=== PATIENT | female | born 1980 | race Caucasian/White ===

== ENCOUNTER → 2017-08-13 | Outpatient (CLI) | payer BC, OTHER ==
[~2017-08-13] MED LIST: (NONE)10 MG; AMBIEN10 M1 PO; AMOXICILLIN500 MG PO; ATENOLOL50 MG; ATIVAN0.5 MG PO; BACTRIM DS 8001 TA1 PO; BIAXIN500 MG PO; CATAFLAM50 MG PO; CLARITIN-D 12 H1 TAB PO; CLARITIN10 MG PO; CLEOCIN150 MG PO; CYMBALTA20 MG PO; CYMBALTA30 MG PO; CYMBALTA60 MG; FLEXERIL10 MG PO; LEVAQUIN750 MG PO; LEXAPRO20 MG; LISINOPRIL HCTZ1 TA1; LISINOPRIL HCTZ1 TA1 PO; LISINOPRIL-HYDR1 TA1 PO; LISINOPRIL20 MG; MEDROL DOSEPAK4 MG PO; MOTRIN800 MG PO; OMEPRAZOLE D/R20 MG PO; OMEPRAZOLE20 M1; PEN-VK500 MG PO; PRAVASTATIN SOD40 MG; PROVENTIL0.09 MG/AC IH; PYRIDIUM200 MG PO; TENORMIN50 MG PO; TOPIRAMATE25 M3 PO; VENTOLIN H0.09 MG/AC INH; VIBRAMYCIN100 MG PO; VICODIN 5/500 505 MG PO; VICODIN ES 7501 TAB PO; VITAMIN D2000 IU; ZANTAC 150150 MG PO; ZITHROMAX Z PA250 MG PO; ZOFRAN ODT4 MG SL; ZYRTEC10 MG PO
[2017-08-13 09:08] LABS: BASO # 0.1 10*3/uL (0.0-0.1); BASO % 0.7 % (0.0-1.0); EOS # 0.3 10*3/uL (0.0-0.4); EOS % 3.9 % (1.0-4.0); HEMATOCRIT 43.5 % (37.0-47.0); HEMOGLOBIN 14.8 g/dl (12.0-16.0); LYMPH % 24.6 % (27.0-41.0); MEAN CELL VOLUME 89.5 fl (81.0-99.0); MEAN CORPUSCULAR HGB 30.5 pg (27.0-31.0); MEAN PLATELET VOLUME 9.3 fl (9.6-12.3); MONO # 0.4 10*3/uL (0.1-1.0); NEUT # 5.2 10*3/uL (2.3-7.9); NEUT % 65.4 % (47.0-73.0); PLATELET COUNT AUTOMATED 374 10*3/uL (130-400); RED BLOOD COUNT 4.86 10*6/uL (4.10-5.10); RED CELL DISTRI WIDTH 12.9 % (0-14.5)
[2017-08-13 09:35] LABS: ALBUMIN 3.7 gm/dl (3.1-4.5); ALKALINE PHOSPHATASE 87 U/L (45-117); BILIRUBIN, DIRECT < 0.1 mg/dL (0.0-0.2); BUN 11 mg/dl (7-24); CHLORIDE 103 mmol/L (98-107); CREATININE 0.82 mg/dL (0.55-1.02); POTASSIUM 4.3 mmol/L (3.5-5.1); SGOT/AST 10 IU/L (3-35); SGPT/ALT 21 U/L (12-78); SODIUM 138 mmol/L (136-145); TOTAL PROTEIN 7.7 gm/dL (6.4-8.2)
== END | disposition home or self-care (01) ==
LOC: LAB 08:30
PROVIDERS: Podiatrist Foot & Ankle Surgery
DX: B35.1 Tinea unguium (principal)

== ENCOUNTER 2017-09-18 16:52 | Emergency (ER) | payer BC, OTHER ==
[~2017-09-18] VITALS: Wt 135.2 kg
[2017-09-18 18:41] VITALS: BP 130/89
[2017-09-18] MEDS ORDERED: ANAPROX DS550 MG PO (19:21)
== END 2017-09-18 19:29 | disposition home or self-care (01) ==
LOC: ED 16:52
DX: M25.562 Pain in left knee (principal); Z79.899 Other long term (current) drug therapy

== ENCOUNTER 2018-06-09 16:46 | Inpatient (IN) | payer BC ==
[~2018-06-09] VITALS: Ht 170.2 cm; Wt 135.0 kg
--- NOTE | ~2018-06-09 | EKG ---
[place], [place] ELECTROCARDIOGRAM REPORT NAME: FLOYD MENDOZA UNIT #: [id number] ROOM: 525 DOCTOR: DAMIAN BLACKBURN MD BIRTHDATE: [birth year] DOS: 06/09/2018 TIME: 1737 hours. FINDINGS: 1. Normal sinus rhythm at 69 beats per minute. 2. The tracing is normal. 3. No previous tracing is available for comparison. DAMIAN BLACKBURN MD CM:EKGRPT:ELECTROCARDIOGRAM REPORT [id number] DAMIAN BLACKBURN MD
--- NOTE | ~2018-06-09 | EKG ---
[place], [place] ELECTROCARDIOGRAM REPORT NAME: FLOYD MENDOZA UNIT #: [id number] ROOM: 525 DOCTOR: DAMIAN BLACKBURN MD BIRTHDATE: [birth year] DOS: 06/09/2018 TIME: 1737 hours Normal sinus rhythm at 69 beats per minute. The tracing is normal. No previous tracing is available for comparison. DAMIAN BLACKBURN MD CM:EKGRPT:ELECTROCARDIOGRAM REPORT 1707 181 DAMIAN BLACKBURN MD
[~2018-06-09 16:46] MED LIST changes: +ANAPROX DS550 MG PO
[2018-06-09 17:00] VITALS: BP 161/108; BP 162/100
[2018-06-09 17:59] LABS: BASO # 0.1 10*3/uL (0.0-0.1); BASO % 0.7 % (0.0-1.0); EOS # 0.2 10*3/uL (0.0-0.4); EOS % 1.8 % (1.0-4.0); HEMOGLOBIN 13.8 g/dl (12.0-16.0); LYMPH # 2.1 10*3/uL (1.3-4.4); LYMPH % 20.8 % (27.0-41.0); MEAN CELL VOLUME 86.9 fl (81.0-99.0); MEAN CORPUSCULAR HGB 29.2 pg (27.0-31.0); MEAN CORPUSCULAR HGB CONC 33.7 g/dl (33.0-37.0); MEAN PLATELET VOLUME 9.9 fl (9.6-12.3); MONO # 0.7 10*3/uL (0.1-1.0); MONO % 7.2 % (3.0-9.0); PLATELET COUNT AUTOMATED 313 10*3/uL (130-400); RED BLOOD COUNT 4.72 10*6/uL (4.10-5.10); RED CELL DISTRI WIDTH 12.7 % (0-14.5); WHITE BLOOD COUNT 10.1 10*3/uL (4.8-10.8)
[2018-06-09 18:07] LABS: ACT PARTIAL THROMBO TIME 23.9 SECONDS (20.8-31.5)
[2018-06-09] MEDS ORDERED: LEXAPRO10 MG PO (18:10)
[2018-06-09] MEDS ORDERED: ATARAX,VISTARIL50 MG PO (18:10)
[2018-06-09] MEDS ORDERED: TRAZODONE50 MG PO (18:11)
[2018-06-09 18:14] LABS: ALBUMIN 3.5 gm/dl (3.1-4.5); ALKALINE PHOSPHATASE 67 U/L (45-117); BUN 7 mg/dl (7-24); CHLORIDE 104 mmol/L (98-107); CHOLESTEROL 210 mg/dL (<200); CREATININE 0.83 mg/dL (0.55-1.02); HDL CHOLESTEROL 67 mg/dl (40-60); LDL CHOLESTEROL 112 mg/dL (9-159); PHOSPHOROUS 3.1 mg/dL (2.5-4.9); POTASSIUM 3.5 mmol/L (3.5-5.1); SGOT/AST 12 IU/L (3-35); SGPT/ALT 23 U/L (12-78); SODIUM 139 mmol/L (136-145); TOTAL PROTEIN 7.1 gm/dL (6.4-8.2); TRIGLYCERIDES 153 mg/dl (<150); VLDL CHOLESTEROL 31 mg/dL (6-40)
[2018-06-09 18:16] LABS: FREE T4 0.91 ng/dl (0.76-1.46)
[2018-06-09 18:44] LABS: VITAMIN D, 25-HYDROXY 28.9 ng/mL (30-100)
[2018-06-09 20:00] VITALS: BP 163/118
[2018-06-10] VITALS (10 sets, daily range): BP systolic 116–148; BP diastolic 66–98
[2018-06-10 06:09] LABS: BASO # 0.1 10*3/uL (0.0-0.1); BASO % 0.6 % (0.0-1.0); EOS # 0.2 10*3/uL (0.0-0.4); EOS % 2.6 % (1.0-4.0); HEMATOCRIT 39.6 % (37.0-47.0); HEMOGLOBIN 13.2 g/dl (12.0-16.0); LYMPH # 2.1 10*3/uL (1.3-4.4); LYMPH % 22.7 % (27.0-41.0); MEAN CELL VOLUME 87.6 fl (81.0-99.0); MEAN CORPUSCULAR HGB 29.2 pg (27.0-31.0); MEAN CORPUSCULAR HGB CONC 33.3 g/dl (33.0-37.0); MEAN PLATELET VOLUME 9.8 fl (9.6-12.3); MONO # 0.7 10*3/uL (0.1-1.0); MONO % 7.5 % (3.0-9.0); NEUT # 6.2 10*3/uL (2.3-7.9); NEUT % 66.1 % (47.0-73.0); PLATELET COUNT AUTOMATED 293 10*3/uL (130-400); RED BLOOD COUNT 4.52 10*6/uL (4.10-5.10); RED CELL DISTRI WIDTH 13.1 % (0-14.5); WHITE BLOOD COUNT 9.3 10*3/uL (4.8-10.8)
[2018-06-10 06:38] LABS: BUN 8 mg/dl (7-24); CHLORIDE 104 mmol/L (98-107); CREATININE 0.83 mg/dL (0.55-1.02); POTASSIUM 3.6 mmol/L (3.5-5.1); SODIUM 141 mmol/L (136-145)
[2018-06-11] VITALS: BP 128/73
[2018-06-11 07:12] LABS: BASO # 0.1 10*3/uL (0.0-0.1); BASO % 0.7 % (0.0-1.0); EOS # 0.3 10*3/uL (0.0-0.4); EOS % 2.3 % (1.0-4.0); HEMOGLOBIN 12.8 g/dl (12.0-16.0); LYMPH # 1.8 10*3/uL (1.3-4.4); LYMPH % 15.5 % (27.0-41.0); MEAN CELL VOLUME 88.8 fl (81.0-99.0); MEAN CORPUSCULAR HGB 29.2 pg (27.0-31.0); MEAN CORPUSCULAR HGB CONC 32.8 g/dl (33.0-37.0); MEAN PLATELET VOLUME 10.2 fl (9.6-12.3); MONO # 0.9 10*3/uL (0.1-1.0); MONO % 8.2 % (3.0-9.0); NEUT # 8.2 10*3/uL (2.3-7.9); NEUT % 72.9 % (47.0-73.0); PLATELET COUNT AUTOMATED 277 10*3/uL (130-400); RED BLOOD COUNT 4.39 10*6/uL (4.10-5.10); RED CELL DISTRI WIDTH 12.9 % (0-14.5); WHITE BLOOD COUNT 11.3 10*3/uL (4.8-10.8)
[2018-06-11 07:25] LABS: BUN 7 mg/dl (7-24); CHLORIDE 104 mmol/L (98-107); CREATININE 0.81 mg/dL (0.55-1.02); POTASSIUM 3.9 mmol/L (3.5-5.1); SODIUM 139 mmol/L (136-145)
[2018-06-11 08:00] VITALS: BP 143/85
[2018-06-11 12:00] VITALS: BP 144/102
[2018-06-11 16:00] VITALS: BP 145/101
[2018-06-11 17:40] VITALS: BP 156/92
[2018-06-11 20:00] VITALS: BP 155/104
[2018-06-12] VITALS: BP 128/79
[2018-06-12 07:23] LABS: BASO # 0.1 10*3/uL (0.0-0.1); BASO % 0.6 % (0.0-1.0); EOS # 0.2 10*3/uL (0.0-0.4); EOS % 2.4 % (1.0-4.0); HEMATOCRIT 38.7 % (37.0-47.0); HEMOGLOBIN 12.9 g/dl (12.0-16.0); LYMPH # 1.9 10*3/uL (1.3-4.4); LYMPH % 19.2 % (27.0-41.0); MEAN CELL VOLUME 88.6 fl (81.0-99.0); MEAN CORPUSCULAR HGB 29.5 pg (27.0-31.0); MEAN CORPUSCULAR HGB CONC 33.3 g/dl (33.0-37.0); MEAN PLATELET VOLUME 10.4 fl (9.6-12.3); MONO # 0.7 10*3/uL (0.1-1.0); MONO % 6.5 % (3.0-9.0); NEUT # 7.2 10*3/uL (2.3-7.9); NEUT % 70.8 % (47.0-73.0); PLATELET COUNT AUTOMATED 280 10*3/uL (130-400); RED BLOOD COUNT 4.37 10*6/uL (4.10-5.10); WHITE BLOOD COUNT 10.1 10*3/uL (4.8-10.8)
[2018-06-12 07:35] LABS: BUN 8 mg/dl (7-24); CHLORIDE 104 mmol/L (98-107); CREATININE 0.86 mg/dL (0.55-1.02); POTASSIUM 4.1 mmol/L (3.5-5.1); SODIUM 138 mmol/L (136-145)
[2018-06-12 08:00] VITALS: BP 137/83
[2018-06-12] MEDS ORDERED: SIMVASTATIN20 MG PO (11:48)
[2018-06-12] MEDS ORDERED: DOXYCYCLINE100 M3 PO (11:48)
[2018-06-12] MEDS ORDERED: B12,B-12,B 12500 MC1 PO (11:48)
[2018-06-12] MEDS ORDERED: LISINOPRIL10 M1 PO (11:48)
[2018-06-12] MEDS ORDERED: VITAMIN D-32000 UNIT PO (11:48)
[2018-06-12 12:00] VITALS: BP 162/95
[2018-06-12] MEDS ORDERED: AUGMENTIN 875875 MG PO (12:50)
[2018-06-12] MEDS ORDERED: [UNRECOGNIZED DRUG - REMARK] T (12:50)
== END 2018-06-12 13:57 | disposition home or self-care (01) | DRG 580 ==
LOC: 5E 16:46
PROVIDERS: Internal Medicine Nephrology
PROC: 0W9F0ZZ Drainage of Abdominal Wall, Open Approach (ICD-10-PCS; principal; 2018-06-10)
DX: L02.211 Cutaneous abscess of abdominal wall (principal); Z68.42 Body mass index [BMI] 45.0-49.9, adult; E66.01 Morbid (severe) obesity due to excess calories; D72.810 Lymphocytopenia; E78.2 Mixed hyperlipidemia; E53.8 Deficiency of other specified B group vitamins; F41.9 Anxiety disorder, unspecified; L03.311 Cellulitis of abdominal wall; K21.9 Gastro-esophageal reflux disease without esophagitis; I10 Essential (primary) hypertension; G47.00 Insomnia, unspecified; E55.9 Vitamin D deficiency, unspecified; Z72.0 Tobacco use; Z79.899 Other long term (current) drug therapy; Z71.6 Tobacco abuse counseling; Z90.49 Acquired absence of other specified parts of digestive tract; Z82.49 Family history of ischemic heart disease and other diseases of the circulatory system

== ENCOUNTER → 2018-06-13 | Outpatient (CLI) | payer BC ==
[~2018-06-13] MED LIST changes: +ATARAX,VISTARIL50 MG PO; +AUGMENTIN 875875 MG PO; +B12,B-12,B 12500 MC1 PO; +DOXYCYCLINE100 M3 PO; +LEXAPRO10 MG PO; +LISINOPRIL10 M1 PO; +SIMVASTATIN20 MG PO; +TRAZODONE50 MG PO; +VITAMIN D-32000 UNIT PO; +[UNRECOGNIZED DRUG - REMARK] T
== END | disposition home or self-care (01) ==
LOC: WOUNDCARE 04:28
DX: S31.109A Unspecified open wound of abdominal wall, unspecified quadrant without penetration into peritoneal cavity, initial encounter (principal); L02.211 Cutaneous abscess of abdominal wall; F41.9 Anxiety disorder, unspecified; K21.9 Gastro-esophageal reflux disease without esophagitis; E78.5 Hyperlipidemia, unspecified; I10 Essential (primary) hypertension; G47.00 Insomnia, unspecified; F17.210 Nicotine dependence, cigarettes, uncomplicated; X58.XXXA Exposure to other specified factors, initial encounter; Y93.89 Activity, other specified; Y92.89 Other specified places as the place of occurrence of the external cause; Y99.8 Other external cause status

== ENCOUNTER → 2018-06-19 | Outpatient (CLI) | payer BC | END | disposition home or self-care (01) | LOC: WOUNDCARE 08:31 | DX: S31.104D Unspecified open wound of abdominal wall, left lower quadrant without penetration into peritoneal cavity, subsequent encounter (principal); L02.211 Cutaneous abscess of abdominal wall; K21.9 Gastro-esophageal reflux disease without esophagitis; E78.5 Hyperlipidemia, unspecified; I10 Essential (primary) hypertension; G47.00 Insomnia, unspecified; F41.9 Anxiety disorder, unspecified; F17.200 Nicotine dependence, unspecified, uncomplicated; X58.XXXD Exposure to other specified factors, subsequent encounter ==

== ENCOUNTER 2018-12-30 17:28 | Emergency (ER) | payer BC ==
[~2018-12-30] VITALS: Ht 170.1 cm; Wt 134.3 kg
[2018-12-30 17:34] VITALS: BP 164/114
== END 2018-12-30 19:00 | disposition home or self-care (01) ==
LOC: ED 17:28
DX: S51.812A Laceration without foreign body of left forearm, initial encounter (principal); E66.01 Morbid (severe) obesity due to excess calories; K21.9 Gastro-esophageal reflux disease without esophagitis; E78.5 Hyperlipidemia, unspecified; I10 Essential (primary) hypertension; F17.200 Nicotine dependence, unspecified, uncomplicated; Z79.899 Other long term (current) drug therapy; W00.0XXA Fall on same level due to ice and snow, initial encounter; Y93.89 Activity, other specified; Y92.89 Other specified places as the place of occurrence of the external cause; Y99.8 Other external cause status

== ENCOUNTER 2019-06-05 20:16 | Emergency (ER) | payer BC ==
[~2019-06-05] VITALS: Ht 170.1 cm; Wt 134.3 kg
[2019-06-05 20:17] VITALS: BP 164/117
[2019-06-05] MEDS ORDERED: CLOBETASOL EMOL15 GM T (20:38)
== END 2019-06-05 20:43 | disposition home or self-care (01) ==
LOC: ED 20:16
DX: L30.1 Dyshidrosis [pompholyx] (principal); E66.01 Morbid (severe) obesity due to excess calories; K21.9 Gastro-esophageal reflux disease without esophagitis; E78.5 Hyperlipidemia, unspecified; I10 Essential (primary) hypertension; F17.200 Nicotine dependence, unspecified, uncomplicated; Z79.2 Long term (current) use of antibiotics; Z79.899 Other long term (current) drug therapy; Z90.49 Acquired absence of other specified parts of digestive tract

== ENCOUNTER 2019-08-20 20:49 | Inpatient (IN) | payer BC ==
[~2019-08-20] VITALS: Ht 170.2 cm; Wt 134.7 kg
--- NOTE | ~2019-08-20 | EKG ---
[place], [place] ELECTROCARDIOGRAM REPORT NAME: FLOYD MENDOZA UNIT #: [id number] ROOM: 405 DOCTOR: JOHANNA DRAFT REPORT BIRTHDATE: [birth year] [facility] Test Date: 2019-08-20 Test Time: 21:33:48 Pat Name: FLOYD MENDOZA Department: Room: 405 Gender: F Supervisor [employer]: Edwige Cagle : 1980 Requested By: BONNIE GUTIERREZ Order Number: [id number] Reading MD: Daniela Nuñez Measurements Intervals [place] Rate: 80 P: 10 WA: 146 QRS: 13 QRSD: 92 T: 8 QT: 396 QTc: 457 Interpretive Statements Sinus rhythm LVH by voltage Electronically Signed On 08-21-2019 12:14:56 PDT by Daniela Nuñez CM:EKGRPT:ELECTROCARDIOGRAM REPORT 1214 BONNIE FRANZ DRAFT REPORT BONNIE GUTIERREZ DO
[2019-08-20 20:49] VITALS: BP 207/133
[~2019-08-20 20:49] MED LIST changes: +CLOBETASOL EMOL15 GM T
[2019-08-20 20:55] VITALS: BP 190/100
[2019-08-20 21:50] VITALS: BP 185/109
[2019-08-20 21:50] LABS: BASO # 0.1 10*3/uL (0.0-0.1); BASO % 0.8 % (0.0-1.0); EOS # 0.2 10*3/uL (0.0-0.4); EOS % 2.5 % (1.0-4.0); HEMATOCRIT 42.1 % (37.0-47.0); LYMPH # 2.2 10*3/uL (1.3-4.4); MEAN CORPUSCULAR HGB 29.9 pg (27.0-31.0); MEAN CORPUSCULAR HGB CONC 33.3 g/dl (33.0-37.0); MEAN PLATELET VOLUME 9.9 fl (9.6-12.3); MONO # 0.6 10*3/uL (0.1-1.0); MONO % 5.7 % (3.0-9.0); NEUT # 6.5 10*3/uL (2.3-7.9); NEUT % 67.5 % (47.0-73.0); PLATELET COUNT AUTOMATED 380 10*3/uL (130-400); RED BLOOD COUNT 4.68 10*6/uL (4.10-5.10); RED CELL DISTRI WIDTH 13.2 % (0-14.5); WHITE BLOOD COUNT 9.6 10*3/uL (4.8-10.8)
--- NOTE | 2019-08-20 21:51 | NUR ---
BP HAS DROPPED PER BP MACHINE FROM LAST BP MACHINE CHECK. WILL CONTINUE TO MONITOR PATIENT.
[2019-08-20 22:00] LABS: INTERNATIONAL NORM RATIO 0.9 (2.0-3.5)
[2019-08-20 22:20] LABS: ALBUMIN 3.7 gm/dl (3.1-4.5); BUN 15 mg/dl (7-24); CHLORIDE 104 mmol/L (98-107); CREATININE 0.85 mg/dL (0.55-1.02); POTASSIUM 3.9 mmol/L (3.5-5.1); SGOT/AST 14 IU/L (3-35); SGPT/ALT 23 U/L (12-78); SODIUM 136 mmol/L (136-145); TOTAL PROTEIN 6.9 gm/dL (6.4-8.2)
[2019-08-20 22:22] LABS: ALKALINE PHOSPHATASE 67 U/L (45-117)
[2019-08-20 22:23] LABS: TROPONIN I < 0.015 ng/ml (<0.045)
[2019-08-20 22:25] LABS: BILIRUBIN NEGATIVE (NEGATIVE); BLOOD NEGATIVE (NEGATIVE); CLARITY CLEAR (CLEAR); COLOR YELLOW (YELLOW); GLUCOSE NEGATIVE (NEGATIVE); KETONE NEGATIVE (NEGATIVE); LEUKO ESTERASE NEGATIVE (NEGATIVE); NITRITE NEGATIVE (NEGATIVE); SPECIFIC GRAVITY 1.025 (1.005-1.030); UROBILINOGEN 0.2 E.U./dl (0.2-1.0)
[2019-08-20 22:32] LABS: BACTERIA TRACE; RBC 0-2 rbc/hpf (0-2); WBC 0-2 wbc/hpf (0-5)
[2019-08-20 23:00] VITALS: BP 166/98
[2019-08-20 23:36] VITALS: BP 130/90
[2019-08-21] VITALS (7 sets, daily range): BP systolic 126–148; BP diastolic 64–98
--- NOTE | 2019-08-21 00:24 | NUR ---
A 38, admitted to 4E, under the services of VANESA Pagan MD with a diagnosis of HYPERTENSIVE EMERGENCY. Chief complaint is HEADACHE, BLURRED VISION. Patient arrived via stretcher from ER. Monitor applied. Initial assessment completed. Vital signs taken and recorded. VANESA PAGAN MD notified of admission to the unit. Orders received. See assessment for past medical history, medications and allergies. Patient and/or family oriented to unit. [address] visitation policy reviewed. Clothing/patient valuable form completed. CALL LIGHT WITHIN REACH, RESTING IN BED, BED LOCKED AND IN LOWEST POSITION, SIDE RAILS UP X2. ARMANDO MEJIA
--- NOTE | 2019-08-21 01:56 | NUR ---
PATIENT REFUSED SALONI HOSE. RATIONAL GIVEN FOR USE OF SALONI HOSE. PATIENT STILL REFUSING.
--- NOTE | 2019-08-21 04:53 | NUR ---
24 HR chart check completed.
--- NOTE | 2019-08-21 08:06 | NUR ---
[place] given per patient request for c/o headache. Pain is rated 8/10. Will monitor.
--- NOTE | 2019-08-21 09:00 | NUR ---
Spoke with Maite, student physician regarding patients blood pressure and c/o headache. Pain rated 6/10, patient not satisfied with effectivness of [place].
--- NOTE | 2019-08-21 10:30 | NUR ---
Called Maite, medical student regarding patients current blood pressure. See vitals.
--- NOTE | 2019-08-21 15:49 | NUR ---
Tractor Crane Operator in to talk to patient. Patient states lives at home with her and her daughters. There are 14 steps in the home. Physician: Dr. Brad Martínez Pharmacy: [facility] Home health services: none Patient's level of ADLs: INDEPENDENT Patient has working utilities: yes DME: none Follow-up physician's appointment after d/c: she prefers to make her own follow up appt after discharge Does patient want to access PORTAL?: no Discharge plan discussed with patient. She lives at home with her and daughters. She is independent in her ADLs and ambulation. Discussed home health care services and she denies any home needs at this time. When medically stable she will be discharged to home. Her will transport on discharge. EARNEST GARCÍA
--- NOTE | 2019-08-21 21:20 | NUR ---
RESTORIL GIVEN PER PATIENT REQUEST AND PRN ORDER FOR C/O INABILITY TO SLEEP. SEE EMAR. REINFORCED USE OF CALL LIGHT.
[2019-08-22] VITALS: BP 120/65
--- NOTE | 2019-08-22 | NUR ---
PATIENT RESTING QUIETLY. NO FURTHER C/O VOICED.
[2019-08-22 04:00] VITALS: BP 140/80
--- NOTE | 2019-08-22 04:45 | NUR ---
PATIENT MEDICATED WITH NORCO PER PRN ORDER FOR C/O HEADACHE. RATED PAIN A 8/10 WITH 10 BEING THE WORST. SEE EMAR. REINFORCED USE OF CALL LIGHT.
--- NOTE | 2019-08-22 06:16 | NUR ---
PATIENT MEDICATED WITH TYLENOL FOR C/O HEADACHE. NORCO GIVEN SL EFFECTIVE . PAIN NOW RATED A 4/10. REINFORCED USE OF CALL LIGHT.
[2019-08-22 07:06] LABS: BASO # 0.1 10*3/uL (0.0-0.1); BASO % 0.8 % (0.0-1.0); EOS # 0.2 10*3/uL (0.0-0.4); EOS % 2.5 % (1.0-4.0); HEMATOCRIT 42.8 % (37.0-47.0); LYMPH # 1.7 10*3/uL (1.3-4.4); LYMPH % 20.2 % (27.0-41.0); MEAN CELL VOLUME 91.1 fl (81.0-99.0); MEAN CORPUSCULAR HGB 29.8 pg (27.0-31.0); MEAN CORPUSCULAR HGB CONC 32.7 g/dl (33.0-37.0); MEAN PLATELET VOLUME 9.9 fl (9.6-12.3); MONO # 0.6 10*3/uL (0.1-1.0); MONO % 7.5 % (3.0-9.0); NEUT # 5.7 10*3/uL (2.3-7.9); NEUT % 68.4 % (47.0-73.0); PLATELET COUNT AUTOMATED 368 10*3/uL (130-400); RED CELL DISTRI WIDTH 13.4 % (0-14.5); WHITE BLOOD COUNT 8.4 10*3/uL (4.8-10.8)
[2019-08-22 07:19] LABS: CHLORIDE 101 mmol/L (98-107); POTASSIUM 3.9 mmol/L (3.5-5.1); SODIUM 134 mmol/L (136-145)
[2019-08-22 07:34] LABS: BUN 12 mg/dl (7-24); CHOLESTEROL 214 mg/dL (<200); CREATININE 0.79 mg/dL (0.55-1.02); HDL CHOLESTEROL 86 mg/dl (40-60); LDL CHOLESTEROL 105 mg/dL (9-159); PHOSPHOROUS 3.8 mg/dL (2.5-4.9); TRIGLYCERIDES 113 mg/dl (<150); VLDL CHOLESTEROL 23 mg/dL (6-40)
[2019-08-22 08:07] LABS: VITAMIN D, 25-HYDROXY 25.2 ng/mL (30-100)
[2019-08-22 08:45] VITALS: BP 160/102
[2019-08-22 12:00] VITALS: BP 151/94
[2019-08-22 12:27] VITALS: BP 144/82
[2019-08-22 16:00] VITALS: BP 130/90
[2019-08-22] MEDS ORDERED: LISINOPRIL20 MG PO (18:26)
[2019-08-22] MEDS ORDERED: HYDR25T PO (18:26)
[2019-08-22] MEDS ORDERED: PRAVACHOL20 MG PO (18:29)
--- NOTE | 2019-08-22 18:50 | NUR ---
Discharge instructions reviewed with patient/family. Patient receptive and verbalizes understanding. Follow-up care TO BE arranged BY PATIENT. Written instructions given to patient/family. IV CATH REMOVED AND CARDIAC MONIOTR ACCOUNTED FOR GILMA RUIZ
== END 2019-08-22 18:50 | disposition home or self-care (01) | DRG 305 ==
LOC: ED 20:49 → EDHOLD 23:36 → 4E 23:36
PROVIDERS: Emergency Medicine; Student in an Organized Health Care Education/Training Program; ADMIT Internal Medicine
DX: I16.1 Hypertensive emergency (principal); Z68.42 Body mass index [BMI] 45.0-49.9, adult; E66.01 Morbid (severe) obesity due to excess calories; D72.810 Lymphocytopenia; E78.5 Hyperlipidemia, unspecified; E53.8 Deficiency of other specified B group vitamins; E55.9 Vitamin D deficiency, unspecified; F41.9 Anxiety disorder, unspecified; K21.9 Gastro-esophageal reflux disease without esophagitis; K76.0 Fatty (change of) liver, not elsewhere classified; L30.1 Dyshidrosis [pompholyx]; I10 Essential (primary) hypertension; G47.00 Insomnia, unspecified; F17.210 Nicotine dependence, cigarettes, uncomplicated; Z71.6 Tobacco abuse counseling; Z90.49 Acquired absence of other specified parts of digestive tract; Z98.891 History of uterine scar from previous surgery; Z98.51 Tubal ligation status; Z82.49 Family history of ischemic heart disease and other diseases of the circulatory system

== ENCOUNTER → 2020-09-05 | Outpatient (CLI) | payer BC, OTHER ==
[~2020-09-05] MED LIST changes: +HYDR25T PO; +LISINOPRIL20 MG PO; +PRAVACHOL20 MG PO
== END | disposition home or self-care (01) ==
LOC: COVID19 02:45
PROVIDERS: ATTEND Internal Medicine Nephrology
DX: Z20.828 Contact with and (suspected) exposure to other viral communicable diseases (principal)

== ENCOUNTER 2020-12-15 08:22 | Emergency (ER) | payer BC, OTHER ==
[~2020-12-15] VITALS: Ht 170.1 cm; Wt 135.6 kg
[2020-12-15 08:29] VITALS: BP 167/141
[2020-12-15] MEDS ORDERED: TYLENOL325 M1 PO ×2 (10:04)
[2020-12-15] MEDS ORDERED: NAPROXEN250 MG PO ×2 (10:04)
[2021-01-30] MEDS ORDERED: MOTRIN IB200 M1 PO (13:05)
[2021-02-02] MEDS ORDERED: HYDROCODONE-AC1 EAC1 PO (08:56)
== END 2020-12-15 10:13 | disposition home or self-care (01) ==
LOC: ED 08:22
DX: S86.911A Strain of unspecified muscle(s) and tendon(s) at lower leg level, right leg, initial encounter (principal); K21.9 Gastro-esophageal reflux disease without esophagitis; I10 Essential (primary) hypertension; E78.5 Hyperlipidemia, unspecified; E66.01 Morbid (severe) obesity due to excess calories; Z87.891 Personal history of nicotine dependence; X50.1XXA Overexertion from prolonged static or awkward postures, initial encounter; Y93.89 Activity, other specified; Y92.89 Other specified places as the place of occurrence of the external cause; Y99.8 Other external cause status

== ENCOUNTER → 2021-01-13 | Outpatient (CLI) | payer BC, OTHER ==
[~2021-01-13] MED LIST changes: +HYDROCODONE-AC1 EAC1 PO; +MOTRIN IB200 M1 PO; +NAPROXEN250 MG PO; +TYLENOL325 M1 PO
== END | disposition home or self-care (01) ==
LOC: MRI 09:51
PROVIDERS: ATTEND Orthopaedic Surgery
DX: S86.812A Strain of other muscle(s) and tendon(s) at lower leg level, left leg, initial encounter (principal); M25.461 Effusion, right knee; X58.XXXA Exposure to other specified factors, initial encounter; Y93.89 Activity, other specified; Y92.89 Other specified places as the place of occurrence of the external cause; Y99.8 Other external cause status

== ENCOUNTER → 2021-01-30 | Outpatient (CLI) | payer BC, OTHER | END | disposition home or self-care (01) | LOC: COVID19 12:16 | PROVIDERS: ATTEND Orthopaedic Surgery | DX: Z01.812 Encounter for preprocedural laboratory examination (principal); Z20.822 Contact with and (suspected) exposure to COVID-19 ==

== ENCOUNTER → 2021-02-02 | Day surgery (SDC) | payer BC, OTHER ==
[2021-01-30 13:04] VITALS: BP 157/101
[2021-01-30 14:12] LABS: BASO # 0.1 10*3/uL (0.0-0.1); BASO % 0.7 % (0.0-1.0); EOS # 0.2 10*3/uL (0.0-0.4); EOS % 1.8 % (1.0-4.0); HEMATOCRIT 43.3 % (37.0-47.0); LYMPH # 2.1 10*3/uL (1.3-4.4); LYMPH % 19.1 % (27.0-41.0); MEAN CELL VOLUME 89.8 fl (81.0-99.0); MEAN CORPUSCULAR HGB 29.3 pg (27.0-31.0); MEAN CORPUSCULAR HGB CONC 32.6 g/dl (33.0-37.0); MEAN PLATELET VOLUME 9.8 fl (9.6-12.3); MONO # 0.6 10*3/uL (0.1-1.0); MONO % 5.5 % (3.0-9.0); NEUT # 8.1 10*3/uL (2.3-7.9); NEUT % 72.5 % (47.0-73.0); PLATELET COUNT AUTOMATED 380 10*3/uL (130-400); RED BLOOD COUNT 4.82 10*6/uL (4.10-5.10); WHITE BLOOD COUNT 11.1 10*3/uL (4.8-10.8)
[2021-01-30 14:46] LABS: ALBUMIN 3.6 gm/dl (3.1-4.5); ALKALINE PHOSPHATASE 81 U/L (45-117); BUN 11 mg/dl (7-24); CHLORIDE 104 mmol/L (98-107); CREATININE 0.82 mg/dL (0.55-1.02); POTASSIUM 3.9 mmol/L (3.5-5.1); SGOT/AST 11 IU/L (3-35); SGPT/ALT 57 U/L (12-78); SODIUM 136 mmol/L (136-145); TOTAL PROTEIN 7.7 gm/dL (6.4-8.2)
[2021-02-02] VITALS (7 sets, daily range): BP systolic 133–163; BP diastolic 75–106
[~2021-02-02] VITALS: Ht 170.1 cm; Wt 136.1 kg
== END ==
LOC: SDC 01-23 14:00
PROVIDERS: ATTEND Orthopaedic Surgery
DX: S83.271A Complex tear of lateral meniscus, current injury, right knee, initial encounter (principal); I10 Essential (primary) hypertension; F41.9 Anxiety disorder, unspecified; M17.11 Unilateral primary osteoarthritis, right knee; J44.9 Chronic obstructive pulmonary disease, unspecified; F31.9 Bipolar disorder, unspecified; Z98.51 Tubal ligation status; Z90.49 Acquired absence of other specified parts of digestive tract; W00.9XXA Unspecified fall due to ice and snow, initial encounter; Y93.89 Activity, other specified; Y92.89 Other specified places as the place of occurrence of the external cause; Y99.8 Other external cause status

== ENCOUNTER 2021-05-24 16:01 | Emergency (ER) | payer BC, OTHER ==
[2021-05-24 17:04] LABS: BASO # 0.1 10*3/uL (0.0-0.1); BASO % 0.8 % (0.0-1.0); EOS # 0.2 10*3/uL (0.0-0.4); HEMATOCRIT 42.1 % (37.0-47.0); LYMPH # 1.7 10*3/uL (1.3-4.4); LYMPH % 18.3 % (27.0-41.0); MEAN CORPUSCULAR HGB 29.1 pg (27.0-31.0); MEAN CORPUSCULAR HGB CONC 33.5 g/dl (33.0-37.0); MEAN PLATELET VOLUME 9.7 fl (9.6-12.3); MONO # 0.5 10*3/uL (0.1-1.0); MONO % 5.7 % (3.0-9.0); NEUT # 6.6 10*3/uL (2.3-7.9); NEUT % 72.8 % (47.0-73.0); PLATELET COUNT AUTOMATED 343 10*3/uL (130-400); RED BLOOD COUNT 4.84 10*6/uL (4.10-5.10); RED CELL DISTRI WIDTH 13.2 % (0-14.5); WHITE BLOOD COUNT 9.1 10*3/uL (4.8-10.8)
[2021-05-24 17:22] LABS: ALBUMIN 3.6 gm/dl (3.1-4.5); ALKALINE PHOSPHATASE 95 U/L (45-117); BUN 10 mg/dl (7-24); CHLORIDE 104 mmol/L (98-107); CREATININE 0.81 mg/dL (0.55-1.02); SGOT/AST 15 IU/L (3-35); SGPT/ALT 33 U/L (12-78); SODIUM 137 mmol/L (136-145); TOTAL PROTEIN 7.2 gm/dL (6.4-8.2)
[2021-05-24 17:28] LABS: TROPONIN I < 0.015 ng/ml (<0.045)
[2021-05-24 19:18] VITALS: BP 200/100
== END 2021-05-24 19:20 | disposition home or self-care (01) ==
LOC: ED 16:01
PROVIDERS: Emergency Medicine
DX: I10 Essential (primary) hypertension (principal); F41.9 Anxiety disorder, unspecified; K21.9 Gastro-esophageal reflux disease without esophagitis; E78.5 Hyperlipidemia, unspecified; Z98.51 Tubal ligation status; Z88.8 Allergy status to other drugs, medicaments and biological substances; Z79.899 Other long term (current) drug therapy; Z98.890 Other specified postprocedural states; Z90.49 Acquired absence of other specified parts of digestive tract

== ENCOUNTER → 2022-06-15 | Outpatient (CLI) | payer BC, OTHER | END | disposition home or self-care (01) | LOC: COVID19 01:11 | PROVIDERS: ATTEND Internal Medicine | DX: Z20.822 Contact with and (suspected) exposure to COVID-19 (principal) ==

== ENCOUNTER → 2022-06-22 | Outpatient (CLI) | payer BC, OTHER | END | disposition home or self-care (01) | LOC: LAB 14:37 | PROVIDERS: ATTEND Internal Medicine | DX: J44.1 Chronic obstructive pulmonary disease with (acute) exacerbation (principal) ==

== ENCOUNTER 2022-12-18 08:20 | Emergency (ER) | payer BC, OTHER ==
[~2022-12-18] VITALS: Ht 170.1 cm; Wt 132.0 kg
[2022-12-18 08:29] VITALS: BP 139/95
[2022-12-18] MEDS ORDERED: CLEOCIN HCL150 MG PO (08:54)
[2022-12-18] MEDS ORDERED: PHENERGAN25 M3 PO (08:54)
== END 2022-12-18 09:10 | disposition home or self-care (01) ==
LOC: ED 08:20
DX: K04.7 Periapical abscess without sinus (principal); Z90.49 Acquired absence of other specified parts of digestive tract; Z98.890 Other specified postprocedural states; Z87.891 Personal history of nicotine dependence

== ENCOUNTER → 2023-03-07 | Outpatient (CLI) | payer OTHER ==
[~2023-03-07] MED LIST changes: +CLEOCIN HCL150 MG PO; +PHENERGAN25 M3 PO
== END | disposition home or self-care (01) ==
LOC: MAMMO 00:10
PROVIDERS: ATTEND Internal Medicine
DX: Z12.31 Encounter for screening mammogram for malignant neoplasm of breast (principal)

== ENCOUNTER 2025-03-16 23:09 | Emergency (ER) | payer OTHER ==
[~2025-03-16] VITALS: Ht 170.2 cm; Wt 124.7 kg
[2025-03-16 23:19] VITALS: BP 157/96
[2025-03-16] MEDS ORDERED: Ondansetron Hydrochloride 4 MG/2 ML VIAL IV ONE (23:30)
[2025-03-16 23:41] LABS: BASO # 0.1 10*3/uL (0.0-0.1); BASO % 0.6 % (0.0-1.0); EOS # 0.2 10*3/uL (0.0-0.4); EOS % 2.2 % (1.0-4.0); HEMATOCRIT 38.6 % (37.0-47.0); MEAN CELL VOLUME 93.2 fl (81.0-99.0); MEAN CORPUSCULAR HGB 30.7 pg (27.0-31.0); MEAN CORPUSCULAR HGB CONC 32.9 g/dl (33.0-37.0); MEAN PLATELET VOLUME 8.9 fl (9.6-12.3); MONO # 0.6 10*3/uL (0.1-1.0); MONO % 6.2 % (3.0-9.0); NEUT # 6.4 10*3/uL (2.3-7.9); NEUT % 64.7 % (47.0-73.0); PLATELET COUNT AUTOMATED 332 10*3/uL (130-400); RED BLOOD COUNT 4.14 10*6/uL (4.10-5.10); RED CELL DISTRI WIDTH 13.5 % (0-14.5); WHITE BLOOD COUNT 9.9 10*3/uL (4.8-10.8)
[2025-03-17 00:02] LABS: ALKALINE PHOSPHATASE 48 U/L (46-116); BUN 15 mg/dl (9-23); CHLORIDE 104 mmol/L (98-107); LIPASE 44 U/L (12-53); POTASSIUM 3.3 mmol/L (3.4-5.1); SGPT/ALT 16 U/L (5-49); TOTAL PROTEIN 6.6 gm/dL (6.0-8.0)
[2025-03-17] MEDS ORDERED: Ketorolac Tromethamine 30 MG/ML VIAL IV ONE (00:50)
[2025-03-17] MEDS ORDERED: Ondansetron4 MG PO (01:01)
== END 2025-03-17 01:24 | disposition home or self-care (01) ==
LOC: ED 23:09
PROVIDERS: Internal Medicine
DX: K52.9 Noninfective gastroenteritis and colitis, unspecified (principal); E87.6 Hypokalemia; F17.200 Nicotine dependence, unspecified, uncomplicated; I10 Essential (primary) hypertension; J45.909 Unspecified asthma, uncomplicated; J44.9 Chronic obstructive pulmonary disease, unspecified; F32.A Depression, unspecified; Z79.899 Other long term (current) drug therapy; Z88.1 Allergy status to other antibiotic agents; Z90.49 Acquired absence of other specified parts of digestive tract; Z98.51 Tubal ligation status; Z98.890 Other specified postprocedural states